=== PATIENT | female | born 1975 | race Caucasian/White ===

== ENCOUNTER → 2021-06-26 | Outpatient (CLI) | payer SELFPAY ==
--- NOTE | 2021-06-25 14:00 | ASPS_PTH ---
PATIENT: SWAPNA IBRAHIM LOC: [facility] U#:[id number] AGE/SX: 46/F ROOM: RE06/26/[address]: Dr. Luis Lazar MD : 1975 BED: DIS: 06/26/2021 SPEC #: [id number] RECD: 06/26/21 11:52 STATUS: DAMIEN REDulce #: [id number] KESHAWN: 06/25/21 14:[address]: Luis Lazar DEPT: CYTOLOGY RECD BY: Verona Gama ENTERED: 06/26/21 12:43 SP TYPE: ASPIRATION OTHR DR: Dr. Benji Ocampo MD Tissues: Thyroid gland, NOS Procedures: Special Stain Group II Cytology Other HEADER OPERATION: Ultrasound-guided fine needle aspiration of left thyroid PRE-OP DIAGNOSIS: Thyroid nodule TISSUE SUBMITTED: FNA left thyroid DIAGNOSIS CYTOLOGY Fine needle aspiration, left thyroid nodule (smears): Adequate for evaluation. Follicular lesion of undetermined significance. AM:kimmy COMMENT Case has been reviewed in consultation with Dr. Jovel who concurs with the above diagnosis. IDC:SJ CYTOLOGY STUDY Slides are reviewed. CYTOLOGY GROSS Received are 12 smears labeled with the patient's name and designated per the requisition as left thyroid. Submitted for staining. / kimmy 06/26/2021 TC:? CPT: 21269
== END | disposition home or self-care (01) ==
PROVIDERS: PCP Family Medicine; Visit Provider Surgery
DX: E04.1 Nontoxic single thyroid nodule (principal)
CPT/HCPCS: 88161; 88313

== ENCOUNTER 2021-10-11 06:01 | Day surgery (SDC) | payer SELFPAY ==
[2021-10-11] VITALS (9 sets, daily range): BP systolic 122–136; BP diastolic 70–84; PULSE 66–94; RESP 10–16; TEMP 36.5–37.5; O2SAT 92–99; BMI 30.3
--- NOTE | 2021-10-11 | THYROID_PTH ---
PATIENT: SWAPNA IBRAHIM [place] [facility] [place][id number] AGE/SX: 46/F ROOM: RE10/11/[address]: Dr. Luis Lazar MD : 1975 BED: DIS: 10/11/2021 SPEC #: [id number] RECD: 10/11/21 08:16 STATUS: DAMIEN REDulce #: [id number] KESHAWN: 10/11/21 00:[address]: Luis Lazar DEPT: SURGICAL PATHOLOGY RECD BY: Ofelia Hammonds ENTERED: 10/11/21 09:23 SP TYPE: THYROID OTHR DR: Dr. Benji Ocampo MD Tissues: Thyroid gland, NOS Procedures: Frozen Section (charge) Surgery Specimen Level V HEADER OPERATION: Left thyroid lobectomy PRE-OP DIAGNOSIS: Multinodular goiter, thyroid nodule TISSUE SUBMITTED: Left thyroid nodule, frozen section FROZEN SECTION DIAGNOSIS Thyroid lobe, left lobectomy: Cellular follicular lesion. 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 See comment. SJ:kimmy 10/14/2021 COMMENT Please make reference to previous specimen ([id number]) fine needle aspiration, left thyroid nodule with diagnosis of ?follicular lesion of undetermined significance.? Case has been reviewed in consultation with Dr. Coronel who concurs with the above diagnosis. IDC:AM MICROSCOPIC DESCRIPTION Slides are reviewed. GROSS DESCRIPTION Received fresh for frozen section diagnosis labeled with the patient's name is a specimen designated thyroid lobe left. The specimen consists of a thyroid lobectomy specimen weighing 4.1 gm and measuring 4.5 x 2 x 1.2 cm. No external parathyroid tissue is identified. The specimen is inked as follows: one surface - blue, opposite surface - black. The specimen is serially sectioned to reveal a berumen, solid nodule measuring 1 cm in diameter in the lower portion of the lobe. A section from the nodule is submitted for frozen section diagnosis. The entire specimen is submitted in four cassettes as follows: 1??frozen section, 2-4 - rest of the specimen (2 containing most superior portion and 4 containing most inferior portion. / ERMELINDA:kimmy 10/11/21 TC:1 CPT: 62738, 00914
[2021-10-11 06:32] LABS: Internal QC Validated? YES +Cl - CLEAR BKGD
[2021-10-11 06:33] LABS: Pregnancy, Urine Negative Negative
[2021-10-11] MEDS: Lactated Ringers 1,000 ML 100 ML IV ×2 (06:49→09:29)
--- NOTE | 2021-10-11 07:17 | HP.PCM_ITS ---
History and Physical Date of Admission: 10/11/21 HISTORY AND PHYSICAL ? Anuja Maradiagaamrik 1975 ? ? REFERRING PHYSICIAN: Luis Lazar MD ? CHIEF COMPLAINT: No chief complaint on file. ? HPI: The patient is a 46 year old female with a complaint of atypical follicular lesion of her left thyroid gland. I performed a fine-needle aspiration of her thyroid on 06/25/2021. Pathology report came back adequate for evaluation and showed a follicular lesion of undetermined significance. Originally saw her back on 07/01/2021 but she was unable to get her surgery scheduled until recently. She is here today for preoperative H&P.. ? ? ? PAST MEDICAL HISTORY PAST MEDICAL HISTORY Diagnosis Date ? Elevated hemoglobin A1c 08/30/2020 ? Hearing loss on left 03/13/2015 ? Has seen ENT ans cause is not known. Possible genetics. ? Lazy eye ? ? Left Eye ? Legally blind ? ? Left Eye ? Multiple thyroid nodules ? ? [facility] ? ? PAST SURGICAL HISTORY PAST SURGICAL HISTORY Procedure Laterality Date ? D&C, DIAG AND/OR THERAPEUTIC ? ? ? Dilation & curettage ? PAST SURGICAL HISTORY OF ? 11/30/1998 ? wisdom teeth extraction ? PAST SURGICAL HISTORY OF ? ? ? cysts removed from scalp. ? THYROID LEFT FINE NEEDLE ASPIRATION ? 06/25/2021 ? ? CURRENT MEDICATIONS Current Outpatient Medications Medication Sig ? biotin 1 mg cap Take by mouth. ? No current facility-administered medications for this visit. ? ? ALLERGIES: Patient has no known allergies. ? PERSONAL HISTORY: SOCIAL HISTORY Social History ? Tobacco Use ? Smoking status: Never Smoker ? Smokeless tobacco: Never Used Vaping Use ? Vaping Use: Never used Substance Use Topics ? Alcohol use: No ? Drug use: Never ? FAMILY HISTORY: FAMILY HISTORY FAMILY HISTORY Problem Relation Age of Onset ? Heart Paternal Grandfather ? ? CT ? Diabetes Paternal Grandfather ? ? Stroke Maternal Grandfather ? ? Stroke Maternal Grandmother ? ? Cancer Paternal Aunt ? ? ovarian ? Cancer Other ? ? great aunt Breast & Colon ? Diabetes Father ? ? Stroke Father ? ? Coronary Artery Disease Father ? ? late 40's ? Kidney Disease Father ? ? Thyroid Mother ? ? Accidental Brother ? ? ? REVIEW OF SYMPTOMS: The review of systems data was entered by the nurse and reviewed by me ? Nursing Notes: Cornel Luque LPN 09/17/2021 9:48 AM Signed REVIEW OF SYSTEMS: ?General:???The patient NOTES fatigue, NOTES weight loss, NOTES weight gain, denies feeling hot, and denies feelings of cold. ?Eyes: ?The patient denies glaucoma, denies eye injury/surgery, does not wear glasses or contacts.Legally Blind, Left. ?Ear/Nose/Throat: ?The patient denies allergies, denies hayfever, denies ear infections, and denies bloody noses. ?Cardiovascular: ?The patient denies chest pain, denies heart disease, denies high blood pressure,denies cardiac stent, denies prior heart attack, denies irregular heart beat, denies high cholesterol, ?denies poor circulation, denies heart failure, other cardiac issues, denies claudication, denies cold feet, denies peripheral arterial stent. ?Respiratory: ?The patient denies tuberculosis, denies pneumonia, denies frequent cough, denies pulmonary embolism, denies shortness of breath, and denies coughing up blood. ?Gastrointestinal: ?The patient denies difficulty swallowing, denies acid reflux, denies ulcers, denies vomiting, denies jaundice/hepatitis, denies gallbladder problems, denies black or tarry stools, denies hemorrhoids, denies bleeding from rectum, denies diverticulitis, denies constipation, denies diarrhea, denies loss of stool control, and denies hernias. ?Kidney/Bladder: ?The patient denies kidney stones, denies urine infections, and denies bloody urine. ?Skin: ?The patient denies a history of skin cancer, denies bleeding/changing moles, and denies a history of skin rash. ?Neurologic: ?The patient denies a history of epilepsy/convulsions, denies headaches, denies head/spinal injuries, and denies stroke/TIA. ?Psychiatric: ?The patient denies psychiatric medications, denies depression, and denies voices, denies substance abuse. ?Endocrine: ?The patient NOTES thyroid disorders, denies diabetes, and denies hormonal problems. ?Hematologic: ?The patient denies a history of bruising, denies bleeding, and denies anemia, denies blood clots. ?Infections: ?The patient denies a history of measles and mumps, denies rheumatic fever, and denies sexually transmitted diseases. ?Musculoskeletal: ?The patient denies back pain/injury, denies back problems, denies sciatica, denies knee/foot trouble, NOTES arthritis, or denies gout. ? ? When was patient's last Mammogram screening? None ? ?Last Colonoscopy: ?None ? PHYSICAL EXAMINATION: ? General: The patient is 46 year old female, well nourished, well hydrated in no acute distress. The patient is oriented to time, place, and person. ? VITALS: Pulse 89, temperature 36.9 ?C (98.5 ?F), height 174.6 cm (5' 8.75), weight 90.5 kg (199 lb 9.6 oz), last menstrual period 06/08/2021, SpO2 97 %. ? HEENT: Normal cephalic, ataumatic, pupils are equally round, sclera are anicteric, mucous membranes are moist, oropharynx is clear. Neck has no masses, asymmetry or lymphadenopathy. Thyroid is unremarkable. ? Respiratory: Clear to auscultation and percussion. Normal respiratory excursion and pattern. ? Cardiac: Examination is regular rate and rhythm. ? Abdominal exam: Soft, nontender, with no palpable masses. No hepatosplenomegaly. No palpable hernias. ? Rectal exam: exam deferred ? Extremities: no clubbing, cyanosis or edema. No adenopathy. ? Other: ? ? LABORATORY VALUES: As Noted ? RADIOLOGIC STUDIES: As Noted ? Assessment IMPRESSION: Multinodular goiter (nontoxic) (primary encounter diagnosis) Thyroid nodule ? PLAN: Plan is to perform a left-sided thyroid lobectomy and isthmusectomy. We will obtain an immediate frozen section on this. Papillary thyroid cancer is identified we will then complete a total thyroidectomy on her at this surgery. ? The planned surgical procedure was discussed extensively with the patient. The risks, benefits, anticipated outcomes and possible complications were mentioned. My staff has also explained the procedure in understandable terms and the patient was given the option to take printed material concerning the planned procedure. The patient had the opportunity to ask questions concerning the planned procedure. The patient freely consents to the planned procedure. ? Diagnoses: (E04.2) Multinodular goiter (nontoxic) (primary encounter diagnosis) (E04.1) Thyroid nodule ? ? My findings have been communicated to Dr. Benji Ocampo MD via shared medical record. This note will be forwarded to Dr. Benji Ocampo MD. Return to Clinic: The patient is instructed to follow-up with me 1 week post operatively. ? COVID (Procedure Consent) Procedure Criteria ? Procedure Criteria: Yes Elective The surgeon/proceduralist and patient have discussed in detail the risk of exposure to and/or potential harm posed by the COVID-19 virus with having a surgery/procedure at this time versus the risk of? delaying the surgery/procedure. It is not possible to know either the risk of delaying the surgery or procedure or chance of getting an infection with perfect accuracy, but a joint decision was made between the patient and the surgeon/proceduralist ?to proceed at this time with the scheduled surgery/procedure as indicated on the consent form. ? ? ? Luis Lazar III, MD I have re-examined the patient. There are no clinical changes since date of exam.
[2021-10-11] MEDS: Cefazolin 2 GM in 0.9% Normal Saline 100 ML IV (07:37)
--- NOTE | 2021-10-11 08:28 | PCM.OPRPT ---
Problems Associated Problem List Diagnoses (1) Multinodular goiter (nontoxic): Report of Operation Date of Procedure: 10/11/21 Pre-Operative Diagnosis: Multinodular goiter Post-Operative Diagnosis: Same Surgery/Procedure Performed:: Left-sided thyroid lobectomy and isthmusectomy Surgeon: Luis Lazar Type of Anesthesia: General Anesthesiologist: Zach Shahid Specimen's removed: Left thyroid and isthmus Drains: None Estimated Blood Loss (mL): < 25 cc Fluids Replaced: 500 cc LR Description of Procedure: Patient was brought into the operating room. Placed in the supine position. Under excellent general endotracheal ovation thyroid was placed underneath the shoulder blades and neck was extended and sterilely prepped draped in usual fashion. Local was injected cervical incision was made subplatysmal flaps were created with use of electrocautery. Gelpi retractor was placed inside the wound midline strap muscles were opened dissected on the left side detaching the strap muscles from the thyroid gland itself. Went to the superior pole vessels took these down with harmonic dissector came down inferiorly and took the middle thyroidal vein down with harmonic dissector and finally took the inferior thyroid vessels down with harmonic dissector. I dissected the gland from lateral to medial standpoint staying very close to the gland itself. Detach the gland off of Jose's ligaments. I did not identify the recurrent laryngeal nerve staying so close to the gland. I detached the thyroid from the right side and the isthmus with the harmonic dissector. I sent it to pathology for frozen section which came back as cellular follicular lesion which was exactly what it came back as on the fine-needle aspiration.. General inspection of the bed look good I did not see any bleeding. I had identified the superior and inferior parathyroid glands and was able to spare those without difficulty. I placed FloSeal into the surgical bed. Midline strap muscles were brought together with a 2-0 Vicryl. Subplatysmal flaps were brought together with interrupted 2-0 Vicryls deep dermal stitches of 3-0 Vicryl in a running 4-0 Monocryl in the skin. Dermabond was applied sterile dressings were applied and the patient tolerated the procedure well. Admit VTE Documentation VTE Present on Admission: No VTE Mechan Device Prophylaxis: SCD's VTE Pharm Prophylaxis ordered?: No Reason prophylaxis not ordered:: Treatment Not Indicated
[2021-10-11] MEDS: BUPIVACAINE LIPOSOME/PF 20 ML VIAL OPERA.SITE (08:52)
--- NOTE | 2021-10-11 11:36 | EX.PCM.DISCH ---
Discharge Instructions Procedure General Surgery Diet Discharge Diet: Light diet - advance as tolerated (If you have questions about your diet instructions, please talk to your doctor.) Activity Discharge Activity: May Not Drive (for 1 week or while taking narcotic pain medicine.) May shower in (days): 1 Lifting Restrictions: 10 pounds Dressing / Incision Call your doctor if your incision/area has: Continuous Slow Oozing, Sudden Increased Bleeding, Increased Pain/ Swelling, Increased Redness and Foul Smelling Discharge Call your doctor if you observe: Fever of 101 or Higher Suture Line Care: Avoid Pulling/Pushing and Avoid Pinching/Bending Additional Dressing/Incision Instructions:: Change or remove dressing in 4 days. Leave steri-strips in place for 1 week. Follow Up Care Please Follow Up With: Jolene Dutta PA-C When: Call office to schedule an appointment to be seen in about 10 days. Test Results: Test results from this visit will be discussed in further detail at your follow-up appointment, if applicable. Discharge Plan Admission Attending Provider: Luis Lazar Primary Care Provider: Bejni Ocampo Discharge Orders/Prescriptions Prescriptions: New oxycodone-acetaminophen [Endocet] 5-325 mg tablet 1 tab PO Q6H PRN (Reason: pain) 5 Days RF: 0 oxycodone-acetaminophen [Endocet] 5-325 mg tablet 1 tab PO Q6H PRN (Reason: pain) 5 Days Qty: 20 RF: 0 Continued zinc 50 mg Capsule 50 mg PO DAILY RF: 0 biotin 1,000 mcg Tablet,Chewable 5,000 mcg PO DAILY RF: 0 Referrals / Follow Up: Luis Lazar MD [STAFF PHYSICIAN] - Benji Ocampo MD [Primary Care Provider] - Disposition Disposition (needs filled in before D/C Order can be placed): Home, Self Care
== END 2021-10-11 12:42 | disposition home or self-care (01) ==
LOC: SDC 06:05 → AC 11:30
PROVIDERS: Anesthesiology; PCP Family Medicine; Referring Provider Surgery; Visit Provider Surgery
PROC: (CPT 60220; principal; 2021-10-11 07:15)
DX: E06.5 Other chronic thyroiditis (principal); E04.2 Nontoxic multinodular goiter; Z20.822 Contact with and (suspected) exposure to COVID-19; M19.90 Unspecified osteoarthritis, unspecified site
CPT/HCPCS: 00320; 60220; 81025; 87426; 88307; 88331; C9803; J7120; J2405